=== PATIENT | male | born 1970 | race Caucasian/White ===

== ENCOUNTER 2018-02-09 09:20 | Emergency (ER) ==
[2018-02-09 09:26] VITALS: TEMP 98.8; BMI 22.6
--- NOTE | 2018-02-09 09:43 | ED.PDOC ---
General ED Provider: Dr. STEPHANIE MICHELE Chief Complaint: Chest Pain Stated Complaint: "Arm heaviness and Chest pain -fullness". Onset-Yesterday while [facility]. Persisted though this AM; Denies Dyspnea. Had problem X 1 in past similar but different sensation in arms-feels like someone pulling on his arms to the ground . Denies assoc N-V or diaphoresis Time Seen by Physician: 09:30 Mode of Arrival: Walk-In Information Source: Patient Exam Limitations: No limitations Nursing and Triage Documentation Reviewed and Agree: Yes Reviewed sepsis parameters & appropriate labs ordered?: Yes System Inflammatory Response Syndrome: Not Applicable Sepsis Protocol: For patient's 13 years and over: Temp is 96.8 and below OR 101 and greater Pulse >90 BPM Resp >20/minute Acutely Altered Mental Status Are patient's symptoms suggestive of a new infection, such as: -Pneumonia -Skin, Soft Tissue -Endocarditis -UTI -Bone, Joint Infection -Implantable Device -Acute Abdominal Infection -Wound Infection -Meningitis -Blood Stream Catheter Infection -Unknown System Inflammatory Response Syndrome: Not Applicable Cardiovascular Complaint Exam - Chest Pain Complaint/Exam Onset: Gradual Symptoms Are: Still present Timing: Intermittent Length of Chest Pain Episodes: 20- min Initial Severity: Moderate Current Severity: Mild Location: Reports: Discrete, Left anterior, Left lateral Pain Radiates: Reports: None Character: Reports: Aching, Sharp Aggravating: Reports: Movement, Deep breaths Alleviating: Reports: Spontaneous resolution Associated Signs and Symptoms: Denies: Diaphoresis, Nausea, Vomiting, Fever, Palpitations, Cough, Hemoptysis, Back pain, Abdominal pain, Dizziness, Short of air, Calf pain, Calf swelling Related History: Reports: Similar episode Related Surgical History: Reports: None History of Healthcare-Acquired Pneumonia: Reports: No AMI/ACS Risk Factors: Reports: None TAD Risk Factors: Reports: None Pulmonary Embolism Risk Factors: Reports: None Prior Care for this Complaint: Yes Recent Stress Test: No Recent Echo/LV Function: No JVD Present: No Subcutaneous Emphysema Present: No Diminshed Breath Sounds: No Reproducible Chest Wall Pain: Yes Bilateral Pulses Present: Yes Review of Systems - Review Of Systems Constitutional: Reports: No symptoms Eyes: Reports: No symptoms Ears, Nose, Mouth, Throat: Reports: No symptoms Respiratory: Reports: No symptoms Cardiac: Reports: No symptoms GI: Reports: No symptoms : Reports: No symptoms Musculoskeletal: Reports: No symptoms, Back pain, Muscle pain Skin: Reports: No symptoms Neurological: Reports: No symptoms Endocrine: Reports: No symptoms Hematologic/Lymphatic: Reports: No symptoms All Other Systems: Reviewed and Negative Past Medical History - Past Medical History Previously Healthy: Yes Endocrine: Reports: None Cardiovascular: Reports: None, Unknown Respiratory: Reports: None Hematological: Reports: None Gastrointestinal: Reports: None Genitourinary: Reports: None Neuro/Psych: Reports: None Musculoskeletal: Reports: Back Pain, Other (chest wall pain ) Cancer: Reports: None - Surgical History General Surgical History: Reports: None - Family History Family History: Reports: None - Social History Smoking Status: Current every day smoker Hx Substance Use: No Alcohol Screening: Occasionally Physical Exam - Physical Exam Appearance: Well-appearing Ill-appearing: None Pain Distress: None Eyes: VIJAYA, EOMI, Conjunctiva clear ENT: Ears normal, Nose normal, Oropharynx normal Respiratory: Airway patent, Breath sounds clear, Breath sounds equal, Respirations nonlabored Cardiovascular: RRR, Pulses normal, No rub, No murmur GI/: Soft, Nontender, No masses, Bowel sounds normal, No Organomegaly Musculoskeletal: Normal strength (chest wall tenderness), ROM intact, No edema, No calf tenderness Skin: Warm, Dry, Normal color Neurological: Sensation intact, Motor intact, Reflexes intact, Cranial nerves intact, Alert, Oriented Psychiatric: Affect appropriate, Mood appropriate Re-Evaluation - Re-Evaluation Time of Re-Evaluation: 11:45 Status: Improved Vital Signs Stable: Yes Pain Level: 1/10 Appearance: NAD Lungs: Clear Skin: Warm and Dry Neuro: Alert and Oriented X3 CV: RRR Critical Care Note - Critical Care Note Total Time (mins): 30 Course - Course Hematology/Chemistry: 02/09/18 10:10 02/09/18 10:10 Orders, Labs, Meds: Lab Review 02/09/18 02/09/18 10:10 10:10 WBC 6.88 RBC 4.29 L Hgb 14.0 Hct 39.5 L MCV 92.1 MCH 32.6 H MCHC 35.4 RDW Coeff of Valeri 13.2 Plt Count 261 Immature Gran % (Auto) 0.4 Neut % (Auto) 84.3 Lymph % (Auto) 9.9 L Routt % (Auto) 4.7 Eos % (Auto) 0.3 Baso % (Auto) 0.4 Immature Gran # (Auto) 0.0 Neut # (Auto) 5.8 Lymph # (Auto) 0.7 Routt # (Auto) 0.3 L Eos # (Auto) 0.0 Baso # (Auto) 0.0 Sodium 137 Potassium 4.6 Chloride 101 Carbon Dioxide 25 Anion Gap 15.6 BUN 7 Creatinine 0.66 Estimated GFR (MDRD) 130.00 BUN/Creatinine Ratio 10.60 Glucose 98 Calcium 9.8 Total Bilirubin 0.6 AST 23 ALT 14 Alkaline Phosphatase 40 L Troponin I < 0.0100 Total Protein 7.5 Albumin 4.1 Globulin 3.4 Albumin/Globulin Ratio 1.21 Orders Category Date Time Status EKG-(ED ONLY) Stat CARDIO 02/09/18 09:51 Completed IV [ED IV/MEDIPORT/POWERPORT] .ONCE EMERGENCY 02/09/18 09:52 Active CBC W/ AUTO DIFF Stat LAB 02/09/18 10:10 Completed CMP [COMPREHENSIVE METABOLIC PANEL] Stat LAB 02/09/18 10:10 Completed TROPONIN I Stat LAB 02/09/18 10:10 Completed 0.9 % Sodium Chloride [Saline Flush] MEDS 02/09/18 09:51 Active 1 syr IVF PRN PRN CHEST, 2 VIEWS PA & LAT Stat RADS 02/09/18 09:51 Completed Medications Generic Name Dose Route Start Last Admin Trade Name Freq PRN Reason Stop Dose Admin Sodium Chloride 1 syr 02/09/18 09:51 Saline Flush IVF PRN PRN To flush IV Vital Signs: Temp Pulse Resp BP Pulse Ox 02/09/18 09:23 98.8 F 78 18 177/97 H 99 AMI Core - EKG Initial Interpretation EKG Initial Interpretation Date: 02/09/18 STEPHEN Risk Score STEPHEN Risk Score: Risk Score Odds of by 30D 0 0.1 (0.1-0.2) 1 0.3 (0.2-0.3) 2 0.4 (0.3-0.5) 3 0.7 (0.6-0.9) 4 1.2 (1.0-1.5) 5 2.2 (1.9-2.6) 6 3.0 (2.5-3.6) 7 4.8 (3.8-6.1) Departure - Departure Time of Disposition: 12:15 Disposition: HOME SELF-CARE Discharge Problem: Chest wall pain, Intercostal muscle strain Instructions: Chest Pain (ED) Condition: Good Pt referred to PMD for follow-up: Yes (see pcp for follow up and release to work ) IPMP verified?: No Additional Instructions: Apply ice pack to area of tenderness as needed Avoid strenuous activity Refrain from working for 2 days Allergies/Adverse Reactions: Allergies No Known Allergies Allergy (Unverified 02/09/18 09:22) Home Medications: Ambulatory Orders 1 [No Reported Medications] 02/09/18 Disposition Discussed With: Patient, Family
--- NOTE | 2018-02-09 10:43 | DI ---
EXAM: Chest two view, frontal and lateral views. HISTORY: Chest aching. COMPARISON: None available. FINDINGS: The heart size is normal. There is no pulmonary vascular congestion. Nodular densities p rojecting over the anterior sixth ribs bilaterally are consistent with nipple shadows. The lungs are clear. No pleural effusion or pneumothorax is seen. No acute osseous abnormality identified. IMPRESSION: No acute cardiopulmonary process.
[2018-02-09 12:19] VITALS: BP 156/86
== END 2018-02-09 12:25 | disposition home or self-care (01) ==
LOC: ED 09:20
DX: R07.89 Other chest pain (principal); S29.011A Strain of muscle and tendon of front wall of thorax, initial encounter; F17.210 Nicotine dependence, cigarettes, uncomplicated
CPT/HCPCS: 36415; 80053; 84484; 85025; 93005; 93010; 99283